=== PATIENT | female | born 1995 | race Caucasian/White ===

== ENCOUNTER 2021-09-14 17:40 | Emergency (ER) | payer OTHER, SELFPAY ==
--- NOTE | 2021-09-14 17:59 | ECG_ITS ---
Measurements Intervals [place] Rate: 127 P: 62 LA: 160 QRS: 35 QRSD: 78 T: 18 QT: 394 QTc: 574 Interpretive Statements SINUS TACHYCARDIA NONSPECIFIC T-WAVE ABNORMALITY ABNORMAL RHYTHM ECG NO PREVIOUS ECG AVAILABLE FOR COMPARISON Electronically Signed On 09-15-2021 14:17:14 CDT by Audrey Stearns M.D.
[2021-09-14 18:10] VITALS: BP 125/78; PULSE 121; RESP 20; TEMP 37.3; O2SAT 100
[2021-09-14 18:33] LABS: Basophils Percent Auto 0.4 % (0.2-1.2); Eosinophils Percent Auto 0.1 % (0-4.4); Hematocrit 39.4 % (37.0-47.0); Hemoglobin 13.2 g/dL (12.0-15.0); Immature Granulocyte Absolute 0.14 K/mm3 (0.00-0.031); Immature Granulocyte Percent A 1.3 % (0-0.5); Lymphocytes Absolute Auto 0.58 K/mm3 (0.9-3.2); Lymphocytes Percent Auto 5.4 % (18.3-44.2); Mean Corpuscular HGB Conc 33.5 g/dl (32-36); Mean Corpuscular Hemoglobin 32.9 pg (26-34); Mean Corpuscular Volume 98.3 fl (80-100); Mean Platelet Volume 9.7 fl (7.4-10.4); Monocytes Absolute Auto 1.1 K/mm3 (0.1-0.6); Monocytes Percent Auto 10.6 % (2.6-8.5); Neutrophils Absolute Auto 8.9 K/mm3 (1.3-6.7); Neutrophils Percent Auto 82.2 % (45.5-73.1); Platelet Count Result 193 k/mm3 (150-375); Red Blood Count 4.01 M/mm3 (4.2-5.4); Red Cell Distribution Width 12.6 % (11.5-14.5); White Blood Count 10.8 K/mm3 (4.5-10.0)
[2021-09-14 18:45] LABS: Alanine Aminotransferase 31 U/L (4-35); Albumin Level 3.8 g/dL (3.5-5.1); Alkaline Phosphatase 88 U/L (38-126); Anion Gap 7 mmol/L (8-16); Aspartate Amino Transferase 38 U/L (14-36); Bilirubin,Total 0.2 mg/dL (0.2-1.3); Blood Urea Nitrogen 9 mg/dL (7-17); Carbon Dioxide 22 mmol/L (22-30); Chloride 103 mmol/L (98-107); Estimated CRCL calculation 159 ml/min; Estimated Glomerular Filt Rate > 60; Glucose 92 mg/dL (65-110); Lipase 61 U/L (23-300); Potassium 3.9 mmol/L (3.4-5.0); Sodium 132 mmol/L (137-145)
[2021-09-14 18:57] LABS: Add Urine Microscopic? YES; Appearance Urine Cloudy (Clear); Bacteria Urine Trace /hpf; Bilirubin Urine Negative (Negative); Blood Urine 1+ (Negative); Color Urine Yellow (Yellow); Glucose Urine UA Negative (Negative); Ketones Urine Trace mg/dL (Negative); Leukocyte Esterase Ur Negative LEU/UL (Negative); Mucus Urine Rare /lpf; Nitrate Urine Negative (Negative); Protein Urine Negative (Negative); Squamous Epithelial Cell Urine Many /hpf (Few); Urobilinogen Urine Negative mg/dL (<2.0); WBC Urine 0-3 /hpf
--- NOTE | 2021-09-14 19:31 | ED.GENADULT ---
HPI - General Adult General Chief complaint: Arrhythmia/Palpitations Stated complaint: rapid heart rate Time Seen by Provider: 09/14/21 18:42 History of Present Illness HPI narrative: 25-year-old female presented to emergency room with complaints of elevated heart rate that she noticed this morning. Patient states 2 days ago, noticed to have increased swelling in her lower extremities. Contacted her [employer] at that time, and was told to monitor blood pressure. Blood pressures have been remain within normal limits. This morning, she noticed that her heart rate was in the 120s per her apple watch, and has maintained rate in the 1 teens to 120s all day today. Patient also complains of some mild left lower back pain. Denies abdominal pain nausea, vomiting, diarrhea, fever. Related Data Home Medications Medication Instructions Recorded Confirmed ibuprofen 400 mg tablet 400 mg PO TID PRN 12/03/19 12/22/20 mometasone 50 mcg/actuation nasal 2 spray NASAL DAILY 12/03/19 12/22/20 spray Allergies Allergy/AdvReac Type Severity Reaction Status Date / Time No Known Allergies Allergy Verified 12/22/20 10:49 Review of Systems Review of Systems: CONSTITUTIONAL: Denies fever, chills, or sweats. EYES: Denies visual changes, redness, or discharge. ENT: Denies rhinorrhea, congestion, sore throat, or otalgia. CARDIOVASCULAR: Reports elevated heart rate RESPIRATORY: Denies cough or dyspnea. GASTROINTESTINAL: Reports left flank pain GENITOURINARY: Denies dysuria or hematuria. SKIN: Denies rash or itching. MUSCULOSKELETAL: Denies back pain, joint pain, or myalgia. NEUROLOGIC: Denies headache, numbness, dizziness, or weakness. PSYCHIATRIC: Denies anxiety or depression. [facility] Past Medical History Medical History Anxiety Family History Family History Mother Family history of rheumatoid arthritis Father Heart disease Hypertension Diabetes mellitus Social History Social History Smoking status: Never smoker Second hand tobacco smoke exposure: Yes Alcohol intake: current Alcohol use details: Social Substance use: never Gender identity (if verbalized by the patient): Female Sexual Orientation (if Verbalized by the Patient): Straight or Heterosexual Spiritual care concerns: No Exam Narrative: GENERAL: Well-appearing, well-nourished, and in no acute distress. HEAD: Normocephalic, atraumatic. EYES: PERRLA and EOMI. CHEST: Clear to auscultation. No respiratory distress. No wheezes rales or rhonchi HEART: Fast rate and rhythm. No murmur heard. Normal peripheral pulses. ABDOMEN: Soft, nontender, nondistended, normal active bowel sounds. Left CVA tenderness; gravid abdomen EXTREMITIES: Normal range of motion. No edema. SKIN: Warm, dry, no rash. NEURO: No focal deficits. Alert and oriented x3. PSYCH: Normal mood and affect. Course Vital Signs Vital signs: Vital Signs Temperature 37.3 C 09/14/21 18:10 Pulse Rate 121 H 09/14/21 18:10 Respiratory Rate 20 09/14/21 18:10 Blood Pressure 125/78 09/14/21 18:10 Pulse Oximetry 100 09/14/21 18:10 Temperature 37.3 C 09/14/21 18:10 Pulse Rate 121 H 09/14/21 18:10 Respiratory Rate 20 09/14/21 18:10 Blood Pressure 125/78 09/14/21 18:10 Pulse Oximetry 100 09/14/21 18:10 Medical Decision Making MDM Narrative Medical decision making narrative: 25-year-old female presented emergency room with complaints of left flank pain, and elevated heart rate. Patient states that she normally does not stay hydrated. UA showed a small amount hematuria. CBC and CMP unremarkable. Patient was given a liter of fluid for tachycardia. Patient states that she ingests multiple tablets of Tums throughout the day due to her indigestion. Patient might be's suffering from a small kidney stone i
[2021-09-14] MEDS: SODIUM CHLORIDE 0.9% IV 1,000 ML 150 ML IV CONT (19:35)
[2021-09-14 21:10] VITALS: BP 125/79; PULSE 113; RESP 16; O2SAT 100
[2021-09-14 21:30] LABS: Thyroid Stimulating Hormone 0.948 uIU/mL (0.465-4.680)
== END 2021-09-14 21:11 | disposition home or self-care (01) ==
PROVIDERS: Emergency Medicine; Emergency Provider Nurse Practitioner Family; PCP Internal Medicine
DX: R00.0 Tachycardia, unspecified (principal); R10.9 Unspecified abdominal pain; R31.9 Hematuria, unspecified; F41.9 Anxiety disorder, unspecified
CPT/HCPCS: 36415; 80053; 81001; 83690; 84443; 85025; 93005; 96360; 99283; J7030